=== PATIENT | female | born 1960 | race Caucasian/White ===

== ENCOUNTER 2017-10-30 10:39 | Emergency (ER) | payer MEDICAID, OTHER ==
[2017-10-30 10:59] VITALS: BP 144/78
[2017-10-30] MEDS ORDERED: TETANUS/DIPHTHERIA/PERTUSSIS 0.5 ML SYRINGE IM ONE (11:22)
--- NOTE | 2017-10-30 11:56 | ED Physician Documentation ---
History of Present Illness - Stated complaint Stated Complaint: R HAND LAC - Chief complaint Chief Complaint: Ext Problem - History obtained from History obtained from: Patient - History of Present Illness Timing: Today, How many hours ago (2) Pain level max: 3 Pain level now: 3 Improved by: pressure Worsened by: movement - Additonal information Additional information: R hand laceration, web space between 3rd and 4th digit. Cut on a glass jar. Pt is right handed. Td UTD Review of Systems Constitutional: denies: Fever, Chills Nose: denies: Rhinorrhea / runny nose, Congestion Neurologic: denies: Focal weakness, Numbness PD PAST MEDICAL HISTORY - Past Surgical History Past Surgical History: No - Present Medications Home Medications: Ambulatory Orders Medication Instructions Recorded Confirmed No Known Home Medications [No 10/30/17 10/30/17 Known Home Medications] - Allergies Allergies/Adverse Reactions: Allergies Allergy/AdvReac Type Severity Reaction Status Date / Time No Known Drug Allergies Allergy Verified 03/12/16 14:08 - Social History Does the pt smoke?: Yes Smoking Status: Current every day smoker PD ED PE NORMAL - Vitals Vital signs reviewed: Yes - General General: Alert and oriented X 3 - HEENT HEENT: Moist mucous membranes - Derm Derm: Warm and dry - Neuro Neuro: Alert and oriented X 3 PD ED PE EXPANDED - Extremities MIKHAIL UE/Hands Visual: 1 - laceration (2cm, linear, flap. NVI. no tendon injury) Results - Vitals Vitals: Vital Signs - 24 hr 10/30/17 10:54 Temperature 36.3 C L Heart Rate 66 Respiratory 16 Rate Blood Pressure 144/78 H O2 Saturation 100 Oxygen O2 Source Room air Procedures - Laceration (location) R hand Length in cm: 2 Wound type: Linear, Flap, Into subcut fat, Clean Neurovascular status: Sensory intact, Motor intact, Vascular intact Tendon involvement: Tendon intact. No: Tendon Injury Anesthesia: Lidocaine 1% Wound Preparation: Irrigated copiously NS, Wound explored, To the base. No: FB identified, FB removed Skin layer closure: Nylon, Interrupted, Size #-0 - enter number (4), Sutures - enter # (4) Other: Patient tolerated well, No complications, Neurovascular intact, Dressing applied, Tetanus booster given (tdap) Complexity: Simple PD MEDICAL DECISION MAKING - ED course Complexity details: re-evaluated patient, considered differential, d/w patient, d/w family ED course: Patient is a 57-year-old female with a right hand laceration. This was repaired in the emergency department. Tolerated well. No foreign body. No tendon or nerve injury or vascular injury. Warnings of infection and instructions on wound care given at bedside. Also counseled on how to minimize scarring. Patient counseled regarding signs and symptoms for which I believe and urgent re-evaluation would be necessary. Patient with good understanding of and agreement to plan and is comfortable going home at this time This document was made in part using voice recognition software. While efforts are made to proofread this document, sound alike and grammatical errors may occur. Departure - Departure Disposition: 01 Home, Self Care Clinical Impression: Hand laceration Qualifiers: Encounter type: initial encounter Foreign body presence: without foreign body Laterality: right Qualified Code(s): S61.411A - Laceration without foreign body of right hand, initial encounter Condition: Good Instructions: ED Laceration Hand Follow-Up: your,doctor in 10-14 days for suture removal [Other] Comments: Keep the wound clean. Return if you worsen, especially for redness, swelling, or drainage from the wound. The stitches can be removed here or with your doctor in 10-14 days. Discharge Date/Time: 10/30/17 13:00
[2017-10-30] MEDS ORDERED: LIDOCAINE 1% 2 ML VIAL ONE (12:00)
[2017-10-30] MEDS ORDERED: BACITRACIN OINT TOP STA (12:42)
== END 2017-10-30 13:00 | disposition home or self-care (01) ==
LOC: ED 10:39
DX: S61.411A Laceration without foreign body of right hand, initial encounter (principal); W25.XXXA Contact with sharp glass, initial encounter; F17.200 Nicotine dependence, unspecified, uncomplicated
CPT/HCPCS: 12001; 90471; 99282; 99283